=== PATIENT | male | born 1965 | race Caucasian/White ===

== ENCOUNTER → 2020-11-29 | Outpatient (CLI) | payer OTHER | LOC: MRI 12:41 | DX: M86.372 Chronic multifocal osteomyelitis, left ankle and foot (principal); Z53.9 Procedure and treatment not carried out, unspecified reason ==

== ENCOUNTER 2020-12-19 19:50 | Emergency (ER) | payer OTHER ==
[2020-12-19 21:34] LABS: HEMOGLOBIN 13.9 gm/dl (14.0-17.5); RED BLOOD COUNT 5.82 M/UL (4.20-5.50); WHITE BLOOD COUNT 7.7 K/UL (4.5-11.0)
[2020-12-19 21:56] LABS: BUN/CREATININE RATIO 23 (0-10)
== END 2020-12-20 01:00 | disposition home or self-care (01) ==
LOC: ER1 19:50
PROVIDERS: Family Medicine
DX: U07.1 COVID-19 (principal); E11.9 Type 2 diabetes mellitus without complications; Z79.4 Long term (current) use of insulin; Z88.8 Allergy status to other drugs, medicaments and biological substances
CPT/HCPCS: 0240U; 36415; 71045; 80053; 82550; 82553; 83605; 84484; 85025; 85610; 93005; 99285; M0239

== ENCOUNTER → 2021-01-27 | Outpatient (CLI) | payer OTHER | LOC: EMI 14:22 | DX: E11.42 Type 2 diabetes mellitus with diabetic polyneuropathy (principal); E11.621 Type 2 diabetes mellitus with foot ulcer; M25.775 Osteophyte, left foot; L97.522 Non-pressure chronic ulcer of other part of left foot with fat layer exposed | CPT/HCPCS: 73718 ==

== ENCOUNTER 2021-09-10 12:57 | Emergency (ER) | payer OTHER | END 2021-09-10 14:34 | disposition home or self-care (01) | LOC: ER1 12:57 | DX: S39.012A Strain of muscle, fascia and tendon of lower back, initial encounter (principal); E11.9 Type 2 diabetes mellitus without complications; I10 Essential (primary) hypertension; Z90.49 Acquired absence of other specified parts of digestive tract; X50.9XXA Other and unspecified overexertion or strenuous movements or postures, initial encounter; Y92.512 Supermarket, store or market as the place of occurrence of the external cause; Y93.01 Activity, walking, marching and hiking | CPT/HCPCS: 72100; 99283 ==